=== PATIENT | female | born 1995 | race Caucasian/White ===

== ENCOUNTER 2018-01-15 22:59 | Emergency (ER) | payer BC, OTHER ==
[~2018-01-15] VITALS: Ht 170.2 cm; Wt 161.9 kg
[~2018-01-15 22:59] MED LIST: ONDA4TAB7 PO; PRED50TA PO
[2018-01-15 23:50] LABS: BILIRUBIN,URINE NEGATIVE (NEG); CLARITY,URINE CLEAR; COLOR,URINE YELLOW; NITRITE,URINE NEGATIVE (NEG); PH,URINE 5.5; PROTEIN,URINE NEGATIVE (NEG-TRACE); UROBILINOGEN,URINE 0.2 mg/dL (0.2 mg/dL)
--- NOTE | 2018-01-15 23:59 | PHYS DOC ---
Past Medical History Past Medical History: Anxiety, Asthma, Depression Past Surgical History: Tonsillectomy, Other Additional Past Surgical Histo: cysts removed from ovaries, left ovary removed Alcohol Use: Occasionally Drug Use: None Adult General Chief Complaint Chief Complaint: FLANK PAIN HPI HPI 22-year-old female presents to ER with complaints of 5 day history of left- sided abdominal pain dating into her left flank. Patient reports she has had dysuria and urinary urgency. Patient states she has had decreased appetite with multiple episodes of vomiting and diarrhea. She was seen at urgent care 2 days ago and started on Augmentin. Patient states her symptoms gradually worsened throughout today causing her to come to ER for evaluation. Patient denies chest pain, palpitations, or shortness of air. She denies any recent travel or fever/ chills. She reports she took Tylenol at 8 p.m. with no relief in sxs. Review of Systems Review of Systems Constitutional: Denies fever or chills [] Eyes: Denies change in visual acuity, redness, or eye pain [] HENT: Denies nasal congestion or sore throat [] Respiratory: Denies cough or shortness of breath [] Cardiovascular: No additional information not addressed in HPI [] GI: Denies abdominal pain, nausea, vomiting, bloody stools or diarrhea [] : Denies dysuria or hematuria [] Musculoskeletal: Denies back pain or joint pain [] Integument: Denies rash or skin lesions [] Neurologic: Denies headache, focal weakness or sensory changes [] Endocrine: Denies polyuria or polydipsia [] All other systems were reviewed and found to be within normal limits, except as documented in this note. Current Medications Current Medications Current Medications Medications (Trade) Dose Ordered Sig/Jaquan Start Time Stop Time Status Last Admin Dose Admin Dicyclomine HCl (Bentyl) 20 mg 1X ONCE 01/16/18 00:30 01/16/18 00:31 DC 01/16/18 00:16 20 MG Info (CONTRAST GIVEN -- Rx MONITORING) 1 each PRN DAILY PRN 01/16/18 00:15 01/18/18 00:14 Iohexol (Omnipaque 300 Mg/ml) 75 ml 1X ONCE 01/16/18 00:30 01/16/18 00:31 DC 01/16/18 00:51 75 ML Ketorolac Tromethamine (Toradol 15mg Vial) 15 mg 1X ONCE 01/16/18 01:30 01/16/18 01:31 Ondansetron HCl (Zofran) 4 mg 1X ONCE 01/16/18 00:30 01/16/18 00:31 DC 01/16/18 00:16 4 MG Sodium Chloride 1,000 ml @ 1,000 mls/hr 1X ONCE 01/16/18 00:30 01/16/18 01:29 01/16/18 00:16 1,000 MLS/HR Tamsulosin HCl (Flomax) 0.4 mg 1X ONCE 01/16/18 01:30 01/16/18 01:31 Allergies Allergies Allergies Coded Allergies Type Severity Reaction Last Updated Verified Penicillins Allergy Intermediate Rash 12/14/15 Yes Sulfa (Sulfonamide Antibiotics) Adverse Reaction Mild Nausea 05/10/13 Yes Physical Exam Physical Exam Constitutional: Well developed, well nourished, no acute distress, non-toxic appearance. [] HENT: Normocephalic, atraumatic, bilateral ears normal, mucous membranes pink/ moist, nose normal. [] Eyes: PERRLA, conjunctiva normal, no discharge. [] Neck: Normal range of motion, no tenderness, supple, no stridor. [] Cardiovascular:Heart rate regular rhythm, no murmur [] Lungs & Thorax: Bilateral breath sounds clear to auscultation [] Abdomen: Bowel sounds normal, soft, tender to palp. lt mid/lower abd into lt lateral side- no distention, no masses, no pulsatile masses. [] Skin: Warm, dry, no erythema, no rash. [] Back: No tenderness, lt side mild CVA tenderness. No rt side CVA tenderness Extremities: No tenderness, no cyanosis, no clubbing, ROM intact, no edema. [] Neurologic: Alert and oriented X 3, normal motor function, normal sensory function, no focal deficits noted. [] Psychologic: Affect normal, judgement normal, mood normal. [] Current Patient Data Vital Signs Vital Signs Date Time Temp Pulse Resp B/P (MAP) Pulse Ox O2 Delivery O2 Flow Rate FiO2 01/16/18 00:09 83 16 132/74 (93) 98 Room Air 01/15/18 23:10 97.9 97.9 Lab Values Laboratory Tests Test 01/15/18 23:35 01/15/18 23:45 9/1/18 00:05 Urine Collection Type Unknown Urine Color Yellow Urine Clarity Clear Urine pH 5.5 Urine Specific Thornton 1.025 Urine Protein Negative mg/dL (NEG-TRACE) Urine Glucose (UA) Negative mg/dL (NEG) Urine Ketones (Stick) Negative mg/dL (NEG) Urine Blood Large (NEG) Urine Nitrite Negative (NEG) Urine Bilirubin Negative (NEG) Urine Urobilinogen Dipstick 0.2 mg/dL (0.2 mg/dL) Urine Leukocyte Esterase Negative (NEG) Urine RBC 20-40 /HPF (0-2) Urine WBC Occ /HPF (0-4) Urine Squamous Epithelial Cells Few /LPF Urine Calcium Phosphate Crystals /HPF Urine Amorphous Sediment Present /HPF Urine Bacteria 0 /HPF (0-FEW) Urine Mucus Marked /LPF POC Urine HCG, Qualitative Hcg negative (Negative) White Blood Count 16.3 x10^3/uL (4.0-11.0) H Red Blood Count 4.94 x10^6/uL (3.50-5.40) Hemoglobin 13.5 g/dL (12.0-15.5) Hematocrit 39.0 % (36.0-47.0) Mean Corpuscular Volume 79 fL (79-100) Mean Corpuscular Hemoglobin 27 pg (25-35) Mean Corpuscular Hemoglobin Concent 35 g/dL (31-37) Red Cell Distribution Width 15.2 % (11.5-14.5) H Platelet Count 360 x10^3/uL (140-400) Neutrophils (%) (Auto) 64 % (31-73) Lymphocytes (%) (Auto) 28 % (24-48) Monocytes (%) (Auto) 6 % (0-9) Eosinophils (%) (Auto) 2 % (0-3) Basophils (%) (Auto) 1 % (0-3) Neutrophils # (Auto) 10.5 x10^3uL (1.8-7.7) H Lymphocytes # (Auto) 4.5 x10^3/uL (1.0-4.8) Monocytes # (Auto) 1.0 x10^3/uL (0.0-1.1) Eosinophils # (Auto) 0.2 x10^3/uL (0.0-0.7) Basophils # (Auto) 0.1 x10^3/uL (0.0-0.2) Sodium Level 141 mmol/L (136-145) Potassium Level 3.9 mmol/L (3.5-5.1) Chloride Level 106 mmol/L (98-107) Carbon Dioxide Level 25 mmol/L (21-32) Anion Gap 10 (6-14) Blood Urea Nitrogen 19 mg/dL (7-20) Creatinine 1.1 mg/dL (0.6-1.0) H Estimated GFR (Cockcroft-Gault) 61.6 BUN/Creatinine Ratio 17 (6-20) Glucose Level 118 mg/dL (70-99) H Calcium Level 9.3 mg/dL (8.5-10.1) Total Bilirubin 0.5 mg/dL (0.2-1.0) Aspartate Amino Transferase (AST) 10 U/L (15-37) L Alanine Aminotransferase (ALT) 15 U/L (14-59) Alkaline Phosphatase 84 U/L (46-116) Total Protein 7.5 g/dL (6.4-8.2) Albumin 3.4 g/dL (3.4-5.0) Albumin/Globulin Ratio 0.8 (1.0-1.7) L Lipase 153 U/L (73-393) Laboratory Tests 01/16/18 00:05 Laboratory Tests 01/16/18 00:05 EKG EKG [] Radiology/Procedures Radiology/Procedures CT ABD PELV W/ IV CONTRST ONLY Clinical Indication: lt.sided abd pain; nausea, vomiting, diarrhea. Comparison: CT abdomen and pelvis without contrast, May 10, 2013. Technique: Helical CT imaging of the abdomen and pelvis is performed after 75 cc of Omnipaque 300 IV contrast. Oral contrast not given. Findings: Tiny subpleural nodules in the lung bases are stable. The cardiac size is normal. The liver, gallbladder, spleen, pancreas, adrenal glands, and abdominal aorta are normal. There is mild hypoenhancement of the left kidney and mild hydroureteronephrosis secondary to a 5 x 3 mm calculus in the distal left ureter just proximal to the ureterovesicular junction, coronal image 36. The right kidney is normal. Stomach unremarkable. No dilated small bowel. There are subcentimeter pericecal lymph nodes. Appendix is not identified, no secondary signs of appendicitis. There is no colon wall thickening. Uterus and ovaries unremarkable. No urinary bladder wall thickening. No pelvic free fluid. Stable minimal compression deformity at the superior endplate of L2. IMPRESSION: Mild left obstructive uropathy secondary to a 5 x 3 mm distal ureteral calculus. Electronically signed by: Bryon Saunders MD (01/16/2018 1:04 AM) [facility] DICTATED and SIGNED BY: BRYON SAUNDERS MD DATE: 01/16/18 0056 Course & Med Decision Making Course & Med Decision Making Pertinent Labs and Imaging studies reviewed. (See chart for details) 0115: Discussed test results with pt with UA showing lg blood neg. nitrates/ leuks and UCG neg; WBCs up at 16.3 no bands 10.5 neuts; CMP unremarkable. CT abd /pelvis reported "mild left obstructive uropathy secondary to a 5 x 3 mm distal ureteral calculus" with mild hydroureteronephrosis. Discussed plans for dose of Flomax and with pt still having lt side/flank pain- although reporting sxs had improved since initial tx in ER- will provide with dose of Toradol prior to discharge. Admission was discussed for further care/monitoring- pt feels comfortable with home discharge and is preferring this stating if sxs worsen or with concerns she would return to ER. Discussed need for f/u with urologist beginning of next week- will provide referral info on discharge paperwork. Discharge instructions discussed and education provided on s&s to return to ER for. At time of discussion pt was nontoxic in appearance and in no visible distress. She denies nausea and reports she hasn't had any V/D episodes while in ER. Pt's case, test results, and plan of care was discussed with Dr. Gamez. Magi Disclaimer Magi Disclaimer This electronic medical record was generated, in whole or in part, using a voice recognition dictation system. Departure Departure Impression: Primary Impression: Kidney stone on left side Additional Impressions: Hydroureteronephrosis Abdominal pain Disposition: HOME, SELF-CARE Condition: STABLE Referrals: ANGELA KIM MD (PCP) [facility] MD urologist for follow-up Patient Instructions: Diarrhea, Kidney Stones, Nausea and Vomiting Additional Instructions: As discussed stop taking the Augmentin as that may have been causing your GI issues (vomiting/diarrhea). Drink plenty of water avoiding caffeine products. You need to follow-up with urology next week- call as soon as possible for appointment. If symptoms worsen or with any concerns return to the Emergency Department for re-evaluation. You can take over the counter ibuprofen as needed for pain as directed on container. Scripts Tamsulosin Hcl (FLOMAX) 0.4 Mg Cap.er.24h 0.4 MG PO DAILY, #10 TAB Prov: PÉREZ MUNOZ APRN 01/16/18 Hydrocodone/Apap 5-325 (NORCO 5-325 TABLET) 1 Each Tablet 1 TAB PO PRN Q6HRS PRN for PAIN, #14 TAB 0 Refills Prov: PÉREZ MUNOZ APRN 01/16/18 Ondansetron (ZOFRAN ODT) 4 Mg Tab.rapdis 1 TAB SL Q8HRS for nausea, #10 TAB 0 Refills Prov: PÉREZ MUNOZ APRN 01/16/18 Problem Qualifiers PÉREZ MUNOZ APRN Jan 15, 2018 23:59
[2018-01-16] LABS: BACTERIA,URINE 0 /HPF (0-FEW); RBC,URINE 20-40 /HPF (0-2); SQUAMOUS EPITHELIAL CELL,UR FEW /LPF; WBC,URINE OCC /HPF (0-4)
[2018-01-16 00:01] LABS: AMORPHOUS SEDIMENT,UR PRESENT /HPF
[2018-01-16 00:09] VITALS: BP 132/74
[2018-01-16] MEDS ORDERED: CONTRAST GIVEN. MC PRN (00:15)
[2018-01-16 00:17] LABS: BASO # 0.1 x10^3/uL (0.0-0.2); BASO % 1 % (0-3); EOS # 0.2 x10^3/uL (0.0-0.7); EOS % 2 % (0-3); HEMOGLOBIN 13.5 g/dL (12.0-15.5); LYMPH # 4.5 x10^3/uL (1.0-4.8); LYMPH % 28 % (24-48); MEAN CORPUSCULAR HEMOGLOBIN 27 pg (25-35); MEAN CORPUSCULAR HGB CONC 35 g/dL (31-37); MEAN CORPUSCULAR VOLUME 79 fL (79-100); MONO % 6 % (0-9); NEUT # 10.5 x10^3uL (1.8-7.7); NEUT % 64 % (31-73); PLATELET COUNT 360 x10^3/uL (140-400); RED BLOOD COUNT 4.94 x10^6/uL (3.50-5.40); RED CELL DISTRIBUTION WIDTH 15.2 % (11.5-14.5); WHITE BLOOD COUNT 16.3 x10^3/uL (4.0-11.0)
[2018-01-16] MEDS ORDERED: IV NORMAL SALINE 1000ML BAG 1,000 ML IV ONE (00:30)
[2018-01-16] MEDS ORDERED: ONDANSETRON PF 4 MG/2 ML VIAL. IV ONE (00:30)
[2018-01-16] MEDS ORDERED: DICYCLOMINE 20 MG/2 ML AMPUL. IM ONE (00:30)
[2018-01-16] MEDS ORDERED: IOHEXOL 300 MG/ML 100ML VIAL. IV ONE (00:30)
[2018-01-16 00:35] LABS: CALCIUM 9.3 mg/dL (8.5-10.1); CREATININE 1.1 mg/dL (0.6-1.0); GFR 61.6; POTASSIUM 3.9 mmol/L (3.5-5.1)
[2018-01-16 00:39] LABS: ALBUMIN 3.4 g/dL (3.4-5.0); ALBUMIN/GLOBULIN RATIO 0.8 (1.0-1.7); TOTAL BILIRUBIN 0.5 mg/dL (0.2-1.0); TOTAL PROTEIN 7.5 g/dL (6.4-8.2)
--- NOTE | 2018-01-16 01:07 | RAD ---
PQRS Compliance Statement: One or more of the following individualized dose reduction techniques were utilized for this examination: 1. Automated exposure control 2. Adjustment of the mA and/or kV according to patient size 3. Use of iterative reconstruction technique CT ABD PELV W/ IV CONTRST ONLY Clinical Indication: lt.sided abd pain; nausea, vomiting, diarrhea. Comparison: CT abdomen and pelvis without contrast, May 10, 2013. Technique: Helical CT imaging of the abdomen and pelvis is performed after 75 cc of Omnipaque 300 IV contrast. Oral contrast not given. Findings: Tiny subpleural nodules in the lung bases are stable. The cardiac size is normal. The liver, gallbladder, spleen, pancreas, adrenal glands, and abdominal aorta are normal. There is mild hypoenhancement of the left kidney and mild hydroureteronephrosis secondary to a 5 x 3 mm calculus in the distal left ureter just proximal to the ureterovesicular junction, coronal image 36. The right kidney is normal. Stomach unremarkable. No dilated small bowel. There are subcentimeter pericecal lymph nodes. Appendix is not identified, no secondary signs of appendicitis. There is no colon wall thickening. Uterus and ovaries unremarkable. No urinary bladder wall thickening. No pelvic free fluid. Stable minimal compression deformity at the superior endplate of L2. IMPRESSION: Mild left obstructive uropathy secondary to a 5 x 3 mm distal ureteral calculus. Electronically signed by: Bryon Saunders MD (01/16/2018 1:04 AM) [facility]
[2018-01-16] MEDS ORDERED: KETOROLAC 15 MG/ML VIAL. IV ONE (01:30)
[2018-01-16] MEDS ORDERED: TAMSULOSIN 0.4 MG CAP.ER.24H. PO ONE (01:30)
[2018-01-16] MEDS ORDERED: TAMS0.4C97 PO (01:38)
[2018-01-16] MEDS ORDERED: HYDR-971 PO (01:38)
[2018-01-16] MEDS ORDERED: ONDA4TAB10 SL (01:38)
== END 2018-01-16 01:57 | disposition home or self-care (01) ==
LOC: ER 22:59
DX: N13.30 Unspecified hydronephrosis (principal); N20.0 Calculus of kidney; J45.909 Unspecified asthma, uncomplicated; Z88.0 Allergy status to penicillin; Z88.2 Allergy status to sulfonamides
CPT/HCPCS: 36415; 74177; 80053; 81001; 81025; 83690; 85025; 96361; 96372; 96374; 96375; 99285; J0500; J1885; J2405; J7030; Q9967

== ENCOUNTER 2018-08-08 21:34 | Emergency (ER) | payer OTHER ==
[~2018-08-08] VITALS: Ht 170.2 cm; Wt 163.3 kg
[~2018-08-08 21:34] MED LIST changes: +HYDR-3164 PO; +ONDA4TAB10 SL; +TAMS0.4C97 PO
[2018-08-08 21:42] VITALS: BP 146/86
--- NOTE | 2018-08-08 22:39 | PHYS DOC ---
Past Medical History Past Medical History: Anxiety, Asthma, Depression Past Surgical History: Tonsillectomy, Other Additional Past Surgical Histo: cysts removed from ovaries, left ovary removed Additional Information: VAPORIZER Alcohol Use: Occasionally Drug Use: None Adult General Chief Complaint Chief Complaint: UPPER EXTREMITY PAIN [facility] HPI Patient is a 23 year old female who presents with has Implanon control implanted in the left upper arm. Patient states she checks it every month to make sure it so that she cannot feel it. Review of Systems Review of Systems Constitutional: Denies fever or chills [] Eyes: Denies change in visual acuity, redness, or eye pain [] HENT: Denies nasal congestion or sore throat [] Respiratory: Denies cough or shortness of breath [] Cardiovascular: No additional information not addressed in HPI [] GI: Denies abdominal pain, nausea, vomiting, bloody stools or diarrhea [] : Denies dysuria or hematuria [] Musculoskeletal: upper arm pain. Missing Implanon. Denies back pain or joint pain [] Integument: Denies rash or skin lesions [] Neurologic: Denies headache, focal weakness or sensory changes [] All other systems were reviewed and found to be within normal limits, except as documented in this note. Allergies Allergies Allergies Coded Allergies Type Severity Reaction Last Updated Verified Penicillins Allergy Intermediate Rash 12/14/15 Yes Sulfa (Sulfonamide Antibiotics) Adverse Reaction Mild Nausea 05/10/13 Yes Physical Exam Physical Exam Constitutional: Well developed, well nourished, no acute distress, non-toxic appearance. [] HENT: Normocephalic, atraumatic, bilateral external ears normal, oropharynx moist, no oral exudates, nose normal. [] Eyes: PERRLA, EOMI, conjunctiva normal, no discharge. [] Neck: Normal range of motion, no tenderness, supple, no stridor. [] Cardiovascular:Heart rate regular rhythm, no murmur [] Lungs & Thorax: Bilateral breath sounds clear to auscultation [] Abdomen: Bowel sounds normal, soft, no tenderness, no masses, no pulsatile masses. [] Skin: Warm, dry, no erythema, no rash. [] Back: No tenderness, no CVA tenderness. [] Extremities: Upper dorsal tricep area of arm tenderness, no cyanosis, no clubbing, ROM intact, no edema. [] Neurologic: Alert and oriented X 3, normal motor function, normal sensory function, no focal deficits noted. [] Psychologic: Affect normal, judgement normal, mood normal. [] Current Patient Data Vital Signs Vital Signs Date Time Temp Pulse Resp B/P (MAP) Pulse Ox O2 Delivery O2 Flow Rate FiO2 08/08/18 21:42 98.4 107 16 146/86 (106) 97 Room Air 98.4 EKG EKG [] Radiology/Procedures Radiology/Procedures [] Impressions: [facility] [address] [place] [address] IMAGING REPORT Signed PATIENT: JAIRO CASTREJON ACCOUNT: [id number] : 1995 LOCATION: ER AGE: 23 SEX: F EXAM STATUS: PRE ER ORD. PHYSICIAN: KAYE MAYER APRN REASON: can not find control implant in arm PROCEDURE: HUMERUS LEFT Two-view left humerus AP lateral views HISTORY: Could not find breast control implant AP lateral views There is a linear radiopacity seen in the soft tissues anterior medially in the distal arm. The visualized osseous structures appear normal. IMPRESSION: Burst control implant is seen anterior medially and distally. Electronically signed by: Federica Stallworth III, MD (08/08/2018 10:53 PM) [facility] DICTATED and SIGNED BY: FEDERICA STALLWORTH III, MD DATE: 08/08/18 2429 Course & Med Decision Making Course & Med Decision Making Patient is a 23 year old female who presents with has Implanon control implanted in the left upper arm. Patient states she checks it every month to make sure it so that she cannot feel it. Alert and oriented. Skin is pink warm and dry. There is no swelling or deformity or redness seen to the left upper arm. There is tenderness to palpation to the sole arm in the tricep area. I do not feel any masses or foreign objects in the arm or under the skin. Cap refill less than 3 seconds. Positive strong radial pulse there is no swelling of the arm. Skin is pink warm and dry. Patient denies chest pain, shortness of air, numbness or tingling. Patient has full range of motion and can use the arm appropriately. X-ray states control implant is seen anterior medially and distally. Patient to follow-up with her baker chef with any concerns. Dragon Disclaimer Dragon Disclaimer This electronic medical record was generated, in whole or in part, using a voice recognition dictation system. Departure Departure Impression: Primary Impression: Encounter for medical screening examination Disposition: HOME, SELF-CARE Condition: STABLE Referrals: ANGELA KIM MD (PCP) Patient Instructions: Medical Screening Exam Additional Instructions: Follow-up with her baker chef if you have any concerns about movement of the present control. KAYE MAYER MILLER FIRST Aug 08, 2018 22:39
--- NOTE | 2018-08-08 22:55 | RAD ---
Two-view left humerus AP lateral views HISTORY: Could not find breast control implant AP lateral views There is a linear radiopacity seen in the soft tissues anterior medially in the distal arm. The visualized osseous structures appear normal. IMPRESSION: Burst control implant is seen anterior medially and distally. Electronically signed by: Rusty Wood III, MD (08/08/2018 10:53 PM) [facility]
== END 2018-08-08 23:07 | disposition home or self-care (01) ==
LOC: ER 21:34
DX: M79.622 Pain in left upper arm (principal); Z30.431 Encounter for routine checking of intrauterine contraceptive device; J45.909 Unspecified asthma, uncomplicated; Z88.0 Allergy status to penicillin; Z88.2 Allergy status to sulfonamides
CPT/HCPCS: 73060; 96361; 96374; 96375; 99283; 99284-25

== ENCOUNTER 2018-08-18 18:59 | Emergency (ER) | payer OTHER ==
[~2018-08-18] VITALS: Ht 167.6 cm; Wt 163.3 kg
[2018-08-18] MEDS ORDERED: IV NORMAL SALINE 1000ML BAG 1,000 ML IV SCH (19:13)
[2018-08-18] MEDS ORDERED: ONDANSETRON PF 4 MG/2 ML VIAL. IV ONE ×3 (19:15→22:30)
[2018-08-18 19:30] LABS: BASO # 0.1 x10^3/uL (0.0-0.2); BASO % 0 % (0-3); EOS # 0.1 x10^3/uL (0.0-0.7); EOS % 1 % (0-3); HEMOGLOBIN 15.9 g/dL (12.0-15.5); LYMPH # 2.3 x10^3/uL (1.0-4.8); LYMPH % 10 % (24-48); MEAN CORPUSCULAR HEMOGLOBIN 27 pg (25-35); MEAN CORPUSCULAR HGB CONC 33 g/dL (31-37); MEAN CORPUSCULAR VOLUME 81 fL (79-100); MONO % 4 % (0-9); NEUT # 19.8 x10^3uL (1.8-7.7); NEUT % 85 % (31-73); PLATELET COUNT 489 x10^3/uL (140-400); RED BLOOD COUNT 5.91 x10^6/uL (3.50-5.40); RED CELL DISTRIBUTION WIDTH 15.2 % (11.5-14.5); WHITE BLOOD COUNT 23.4 x10^3/uL (4.0-11.0)
--- NOTE | 2018-08-18 19:36 | PHYS DOC ---
Past Medical History Past Medical History: Anxiety, Asthma, Depression Past Surgical History: Tonsillectomy, Other Additional Past Surgical Histo: cysts removed from ovaries, left ovary removed Alcohol Use: Occasionally Drug Use: None Adult General Chief Complaint Chief Complaint: NAUSEA/VOMITING/DIARRHA HPI HPI Patient is a 23-year-old female who presents with complaint of nausea with vomiting and diarrhea that started at about 1:00 this afternoon. She does complain of crampy abdominal pain especially in her lower abdomen. She states that she has had numerous episodes of vomiting in the last few episodes she has seen blood mixed in with the vomitus. She states that her stool has just been liquidy almost like water. She denies any fever, chest pain or shortness of breath. She states that her son had similar symptoms on Thursday. She indicates that she was not feeling well earlier this morning but had eaten some lunch and not long after eating lunch, she started with the nausea and vomiting and later with the diarrhea. Review of Systems Review of Systems Constitutional: Denies fever or chills [] Respiratory: Denies cough or shortness of breath [] Cardiovascular: No additional information not addressed in HPI [] GI: Complains of crampy abdominal pain with nausea, vomiting and diarrhea [] Neurologic: Denies headache, focal weakness or sensory changes [] All other systems were reviewed and found to be within normal limits, except as documented in this note. Current Medications Current Medications Current Medications Medications (Trade) Dose Ordered Sig/[facility] Start Time Stop Time Status Last Admin Dose Admin Ciprofloxacin (Cipro) 500 mg 1X ONCE 08/19/18 00:15 08/19/18 00:16 08/19/18 00:12 500 MG Diphenhydramine HCl (Benadryl) 25 mg 1X ONCE 08/18/18 21:30 08/18/18 21:31 DC 08/18/18 21:34 25 MG Info (CONTRAST GIVEN -- Rx MONITORING) 1 each PRN DAILY PRN 08/18/18 22:30 08/20/18 22:29 Iohexol (Omnipaque 300 Mg/ml) 75 ml 1X ONCE 08/18/18 22:30 08/18/18 22:31 DC 08/18/18 22:29 75 ML Metoclopramide HCl (Reglan Vial) 10 mg 1X ONCE 08/18/18 21:30 08/18/18 21:31 DC 08/18/18 21:34 10 MG Metronidazole (Flagyl) 500 mg 1X ONCE 08/19/18 00:15 08/19/18 00:16 08/19/18 00:12 500 MG Ondansetron HCl (Zofran) 4 mg 1X ONCE 08/18/18 22:30 08/18/18 22:31 DC 08/18/18 22:20 4 MG Sodium Chloride 1,000 ml @ 125 mls/hr 1X ONCE 08/18/18 22:30 08/19/18 06:29 08/18/18 22:20 125 MLS/HR Allergies Allergies Allergies Coded Allergies Type Severity Reaction Last Updated Verified Penicillins Allergy Intermediate Rash 12/14/15 Yes Sulfa (Sulfonamide Antibiotics) Adverse Reaction Mild Nausea 05/10/13 Yes Physical Exam Physical Exam Constitutional: Well developed, well nourished, no acute distress, non-toxic appearance. [] HENT: Normocephalic, atraumatic, bilateral external ears normal, oropharynx moist, no oral exudates, nose normal. [] Eyes: PERRLA, EOMI, conjunctiva normal, no discharge. [] Neck: Normal range of motion, no tenderness, supple, no stridor. [] Cardiovascular:Heart rate regular rhythm, no murmur [] Lungs & Thorax: Bilateral breath sounds clear to auscultation [] Abdomen: Bowel sounds normal, soft, with lower abdominal and epigastric tenderness. [] Skin: Warm, dry, no erythema, no rash. [] Extremities: No tenderness, no cyanosis, no clubbing, ROM intact. [] Neurologic: Alert and oriented X 3, no focal deficits noted. [] Current Patient Data Vital Signs Vital Signs Date Time Temp Pulse Resp B/P (MAP) Pulse Ox O2 Delivery O2 Flow Rate FiO2 08/18/18 23:55 100 20 140/90 (107) 99 Room Air 08/18/18 19:00 98.9 98.9 Lab Values Laboratory Tests Test 08/18/18 19:24 08/18/18 20:20 08/18/18 20:26 White Blood Count 23.4 x10^3/uL (4.0-11.0) H Red Blood Count 5.91 x10^6/uL (3.50-5.40) H Hemoglobin 15.9 g/dL (12.0-15.5) H Hematocrit 48.0 % (36.0-47.0) H Mean Corpuscular Volume 81 fL (79-100) Mean Corpuscular Hemoglobin 27 pg (25-35) Mean Corpuscular Hemoglobin Concent 33 g/dL (31-37) Red Cell Distribution Width 15.2 % (11.5-14.5) H Platelet Count 489 x10^3/uL (140-400) H Neutrophils (%) (Auto) 85 % (31-73) H Lymphocytes (%) (Auto) 10 % (24-48) L Monocytes (%) (Auto) 4 % (0-9) Eosinophils (%) (Auto) 1 % (0-3) Basophils (%) (Auto) 0 % (0-3) Neutrophils # (Auto) 19.8 x10^3uL (1.8-7.7) H Lymphocytes # (Auto) 2.3 x10^3/uL (1.0-4.8) Monocytes # (Auto) 1.0 x10^3/uL (0.0-1.1) Eosinophils # (Auto) 0.1 x10^3/uL (0.0-0.7) Basophils # (Auto) 0.1 x10^3/uL (0.0-0.2) Segmented Neutrophils % 81 % (35-66) H Band Neutrophils % 1 % (0-9) Lymphocytes % 13 % (24-48) L Monocytes % 4 % (0-10) Basophils % 1 % (0-3) Platelet Estimate Increased (ADEQUATE) Sodium Level 139 mmol/L (136-145) Potassium Level 3.9 mmol/L (3.5-5.1) Chloride Level 100 mmol/L (98-107) Carbon Dioxide Level 21 mmol/L (21-32) Anion Gap 18 (6-14) H Blood Urea Nitrogen 17 mg/dL (7-20) Creatinine 1.0 mg/dL (0.6-1.0) Estimated GFR (Cockcroft-Gault) 68.1 BUN/Creatinine Ratio 17 (6-20) Glucose Level 158 mg/dL (70-99) H Calcium Level 10.0 mg/dL (8.5-10.1) Total Bilirubin 1.1 mg/dL (0.2-1.0) H Aspartate Amino Transferase (AST) 16 U/L (15-37) Alanine Aminotransferase (ALT) 19 U/L (14-59) Alkaline Phosphatase 105 U/L (46-116) Total Protein 9.7 g/dL (6.4-8.2) H Albumin 4.3 g/dL (3.4-5.0) Albumin/Globulin Ratio 0.8 (1.0-1.7) L Lipase 114 U/L (73-393) Urine Collection Type Unknown Urine Color Liz Urine Clarity Cloudy Urine pH 5.5 Urine Specific [place] >=1.030 Urine Protein 100 mg/dL (NEG-TRACE) Urine Glucose (UA) Negative mg/dL (NEG) Urine Ketones (Stick) 15 mg/dL (NEG) Urine Blood Negative (NEG) Urine Nitrite Negative (NEG) Urine Bilirubin Small (NEG) Urine Urobilinogen Dipstick 0.2 mg/dL (0.2 mg/dL) Urine Leukocyte Esterase Negative (NEG) Urine RBC 0 /HPF (0-2) Urine WBC 1-4 /HPF (0-4) Urine Squamous Epithelial Cells Mod /LPF Urine Bacteria Moderate /HPF (0-FEW) Urine Mucus Marked /LPF POC Urine HCG, Qualitative Hcg negative (Negative) Laboratory Tests 08/18/18 19:24 Laboratory Tests 08/18/18 19:24 EKG EKG [] Radiology/Procedures Radiology/Procedures [] Impressions: PROCEDURE: CT ABD PELV W/ IV CONTRST ONLY PQRS Compliance statement: One or more of the following individualized dose reduction techniques were utilized for this examination: 1. Automated exposure control. 2. Adjustment of the mA and/or kV according to patient size. 3. Use of iterative reconstruction technique. Indication:n/v/d, abd pain, [id number] 75ml, prior sent TECHNIQUE: CT abdomen and pelvis with IV contrast with multiplanar reformats. COMPARISON: 01/16/2018 FINDINGS: Heart is normal in size. No pericardial or pleural effusion. Clear lung bases. Liver, spleen, gallbladder, pancreas, adrenals and kidneys within normal limits. No enlarged retroperitoneal or pelvic adenopathy. No free pelvic fluid or ascites. No bowel obstruction. Uterus is present. Urinary bladder demonstrates no radiopaque stones. No pneumoperitoneum. No suspicious bony lesion. IMPRESSION: Fluid-filled bowel loops. Correlate with symptoms of diarrhea. Electronically signed by: Dany Guy, DO (08/18/2018 10:42 PM) [facility] Course & Med Decision Making Course & Med Decision Making Pertinent Labs and Imaging studies reviewed. (See chart for details) [] Dragon Disclaimer Dragon Disclaimer This electronic medical record was generated, in whole or in part, using a voice recognition dictation system. Departure Departure Impression: Primary Impression: Enteritis Disposition: HOME, SELF-CARE Condition: STABLE Referrals: Jazmín GENTILE MD (PCP) Patient Instructions: Viral Gastroenteritis Scripts Metronidazole (FLAGYL) 500 Mg Tablet 500 MG PO TID, #30 TAB Prov: BEBETO MONTESINOS Jr. DO 08/19/18 Ciprofloxacin Hcl (CIPRO) 500 Mg Tablet 1 TAB PO BID, #20 TAB Prov: BEBETO MONTESINOS Jr., DO 08/19/18 Diphenoxylate Hcl/Atropine (LOMOTIL TABLET) 1 Each Tablet 1 TAB PO TID PRN for DIARRHEA, #15 TAB Prov: BEBETO MONTESINOS Jr., DO 08/19/18 Ondansetron Hcl (ZOFRAN) 4 Mg Tablet 4 MG PO PRN TID PRN for NAUSEA/VOMITING, #15 nausea/vomiting Prov: BEBETO MONTESINOS Jr., DO 08/19/18 BEBETO MONTESINOS Jr., DO Aug 18, 2018 19:36
[2018-08-18 19:38] LABS: GFR 68.1; POTASSIUM 3.9 mmol/L (3.5-5.1)
[2018-08-18 19:44] LABS: ALBUMIN 4.3 g/dL (3.4-5.0); ALBUMIN/GLOBULIN RATIO 0.8 (1.0-1.7); TOTAL BILIRUBIN 1.1 mg/dL (0.2-1.0); TOTAL PROTEIN 9.7 g/dL (6.4-8.2)
[2018-08-18 20:23] LABS: % BANDS 1 % (0-9); % BASOS 1 % (0-3); % LYMPHS 13 % (24-48); % MONOS 4 % (0-10); % SEGS 81 % (35-66); PLT ESTIMATE INCREASED (ADEQUATE)
[2018-08-18 20:31] LABS: BILIRUBIN,URINE SMALL (NEG); CLARITY,URINE CLOUDY; COLOR,URINE AMBER; NITRITE,URINE NEGATIVE (NEG); PH,URINE 5.5; PROTEIN,URINE 100 mg/dL (NEG-TRACE); UROBILINOGEN,URINE 0.2 mg/dL (0.2 mg/dL)
[2018-08-18 20:37] LABS: BACTERIA,URINE MODERATE /HPF (0-FEW); RBC,URINE 0 /HPF (0-2); SQUAMOUS EPITHELIAL CELL,UR MOD /LPF
[2018-08-18] MEDS ORDERED: diphenhydrAMINE 50 MG/ML VIAL IVP ONE (21:30)
[2018-08-18] MEDS ORDERED: METOCLOPRAMIDE HCL 10 MG/2 ML VIAL. IV ONE (21:30)
[2018-08-18] MEDS ORDERED: IV NORMAL SALINE 1000ML BAG 1,000 ML IV ONE (22:30)
[2018-08-18] MEDS ORDERED: CONTRAST GIVEN. MC PRN (22:30)
[2018-08-18] MEDS ORDERED: IOHEXOL 300 MG/ML 100ML VIAL. IV ONE (22:30)
--- NOTE | 2018-08-18 22:45 | RAD ---
PQRS Compliance statement: One or more of the following individualized dose reduction techniques were utilized for this examination: 1. Automated exposure control. 2. Adjustment of the mA and/or kV according to patient size. 3. Use of iterative reconstruction technique. Indication:n/v/d, abd pain, [id number] 75ml, prior sent TECHNIQUE: CT abdomen and pelvis with IV contrast with multiplanar reformats. COMPARISON: 01/16/2018 FINDINGS: Heart is normal in size. No pericardial or pleural effusion. Clear lung bases. Liver, spleen, gallbladder, pancreas, adrenals and kidneys within normal limits. No enlarged retroperitoneal or pelvic adenopathy. No free pelvic fluid or ascites. No bowel obstruction. Uterus is present. Urinary bladder demonstrates no radiopaque stones. No pneumoperitoneum. No suspicious bony lesion. IMPRESSION: Fluid-filled bowel loops. Correlate with symptoms of diarrhea. Electronically signed by: Dany Guy DO (08/18/2018 10:42 PM) [facility]
[2018-08-18 23:55] VITALS: BP 140/90
[2018-08-19] MEDS ORDERED: metroNIDAZOLE 500 MG TABLET PO ONE (00:15)
[2018-08-19] MEDS ORDERED: CIPROFLOXACIN HCL 250 MG TABLET. PO ONE (00:15)
[2018-08-19] MEDS ORDERED: METR500T PO (00:19)
[2018-08-19] MEDS ORDERED: CIPR500T94 PO (00:19)
[2018-08-19] MEDS ORDERED: ONDA4TAB7 PO (00:19)
[2018-08-19] MEDS ORDERED: DIPH1TAB PO (00:19)
== END 2018-08-19 00:23 | disposition home or self-care (01) ==
LOC: ER 18:59
DX: K52.9 Noninfective gastroenteritis and colitis, unspecified (principal); J45.909 Unspecified asthma, uncomplicated; Z88.0 Allergy status to penicillin; Z88.2 Allergy status to sulfonamides
CPT/HCPCS: 36415; 74177; 80053; 81001; 81025; 83690; 85007; 85025; 87086; 96361; 96374; 96375; 96376; 99284; J1200; J2405; J2765; J7030; Q9967

== ENCOUNTER → 2019-02-07 | Outpatient (CLI) | payer MEDICAID ==
[~2019-02-07] MED LIST changes: +CIPR500T94 PO; +DIPH1TAB PO; +METR500T PO
--- NOTE | 2019-02-07 15:50 | KCIC ---
EXAM: Pelvic sonogram. HISTORY: Pain. TECHNIQUE: Transabdominal and transvaginal sonographic imaging of the pelvis was performed. COMPARISON: 04/14/2014. FINDINGS: The exam is limited due to body habitus. The uterus measures 7.7 x 4.2 cm. The endometrial stripe measures 2.5 mm in thickness. The right ovary is surgically absent. The left ovary is normal in size and demonstrates normal blood flow. There is a complex cyst with internal septations within the left ovary measuring 3.2 cm in maximum dimension. There is a small amount of fluid within the endocervical canal. No free fluid is seen. IMPRESSION: 1. Thin endometrial stripe. 2. 3.2 cm complex left ovarian cyst with internal septations. 3. Surgically absent right ovary. Electronically signed by: Sydni Andrade MD (02/07/2019 3:46 PM) [facility]
== END | disposition home or self-care (01) ==
LOC: KCIC US 14:52
PROVIDERS: ATTEND Obstetrics & Gynecology
DX: N83.202 Unspecified ovarian cyst, left side (principal); N85.8 Other specified noninflammatory disorders of uterus; Z90.721 Acquired absence of ovaries, unilateral
CPT/HCPCS: 76830; 76856

== ENCOUNTER → 2021-01-18 | Outpatient (CLI) | payer MEDICAID ==
--- NOTE | 2021-01-18 10:28 | KCIC ---
EXAM: Lumbar spine, 3 views HISTORY: Pain. COMPARISON: None. FINDINGS: 3 views of the lumbar spine are obtained. There is a chronic appearing mild superior endpla te compression deformity at L2. The remainder of the vertebral bodies are normal in height. There is slight disc space narrowing at the lumbosacral junction. There are hypoplastic T12 ribs. IMPRESSION: 1. Chronic appearing mild superior endplate compression deformity at L2. 2. No acute osseous finding. Electronically signed by: Sydni Andrade MD (01/18/2021 10:25 AM) [id number]
== END ==
LOC: KCIC 09:09
PROVIDERS: ATTEND Family Medicine
DX: M48.07 Spinal stenosis, lumbosacral region (principal)
CPT/HCPCS: 72100